=== PATIENT | male | born 2005 | race African-American/Black ===

== ENCOUNTER 2023-12-16 15:02 | Emergency (ER) | payer OTHER ==
[~2023-12-16] VITALS: Ht 180.3 cm; Wt 96.1 kg
[2023-12-16 16:14] LABS: BASO % 0.7 % (0.0-1.0); EOS # 0.1 10^3/uL (0.0-0.5); EOS % 2.4 % (0.0-3.0); HEMATOCRIT 44.7 % (42.0-52.0); HEMOGLOBIN 14.7 g/dl (13.5-17.5); LYMPH # 2.2 10^3/uL (1.5-5.0); LYMPH % 38.5 % (24.0-44.0); MEAN CORPUSCULAR HEMOGLOBIN 28.4 pg (27.0-33.0); MEAN CORPUSCULAR HGB CONC 32.9 g/dl (32.0-36.5); MEAN CORPUSCULAR VOLUME 86.5 fl (80.0-96.0); MONO # 0.5 10^3/uL (0.0-0.8); MONO % 9.4 % (2.0-8.0); NEUTROPHILS # 2.8 10^3/uL (1.5-8.5); NEUTROPHILS % 48.8 % (36.0-66.0); PLATELET COUNT, AUTOMATED 252 10^3/uL (150-450); RED BLOOD COUNT 5.17 10^6/uL (4.30-6.10); WHITE BLOOD COUNT 5.8 10^3/uL (4.0-10.0)
[2023-12-16] MEDS: FAMOTIDINE 20MG/2ML VIAL IVP ONE (17:16)
[2023-12-16] MEDS: predniSONE 20 MG TAB PO ONE (17:16)
[2023-12-16] MEDS: diphenhydrAMINE 50MG/ML VIAL IV ONE (17:17)
[2023-12-16 17:43] LABS: VENOUS BASE EXCESS 1.3 (-2.0-2.0); VENOUS O2 SATURATION 60.8 % (60.0-80.0); VENOUS PARTIAL PRESSURE CO2 52.1 mmHg (38.0-50.0); VENOUS PARTIAL PRESSURE O2 32.2 mmHg (30.0-50.0); VENOUS PH 7.348 UNITS (7.330-7.430); VENOUS STANDARD HCO3 24.6 MMOL/L; VENOUS TOTAL CO2 29.6 MMOL/L (24.0-28.0)
[2023-12-16 17:53] LABS: ALBUMIN 4.1 G/DL (3.2-5.2); ALKALINE PHOSPHATASE 74 U/L (46-116); ALT/SGPT 23 U/L (7.0-40); AST/SGOT 23 U/L (<34); BILIRUBIN,DIRECT < 0.1 MG/DL (<0.4); BILIRUBIN,TOTAL 0.3 MG/DL (0.3-1.2); BLOOD UREA NITROGEN 16 MG/DL (9-23); CARBON DIOXIDE LEVEL 31 MMOL/L (20-31); CHLORIDE LEVEL 104 MMOL/L (98-107); CREATININE FOR GFR 1.02 MG/DL (0.70-1.30); GLUCOSE, FASTING 73 MG/DL (60-100); POTASSIUM SERUM 4.3 MMOL/L (3.5-5.1); SODIUM LEVEL 139 MMOL/L (136-145)
[2023-12-16 17:54] LABS: THYROXINE (T4) 7.1 UG/DL (5.5-11.1)
[2023-12-16 17:55] LABS: THYROID STIMULATING HORMONE 1.622 uIU/ML (0.48-4.17)
[2023-12-16 18:36] VITALS: BP 114/56; TEMP 97.5; O2SAT 99
== END 2023-12-16 18:41 | disposition home or self-care (01) ==
LOC: M ED 16:12
DX: T78.40XA Allergy, unspecified, initial encounter (principal)
CPT/HCPCS: 71045; 80048; 80076; 82785; 82803; 84436; 84443; 85025; 87486; 87581; 87633; 87798; 93005; 93041; 94760; 96374; 96375; 99285; J1200; J7512; S0028